=== PATIENT | male | born 1985 | race African-American/Black ===

== ENCOUNTER 2025-06-29 19:03 | Emergency (ER) | payer MEDICAID ==
[~2025-06-29] VITALS: Ht 182.9 cm; Wt 105.5 kg
[2025-06-29 19:11] VITALS: O2SAT 97
[2025-06-29] MEDS: SODIUM CHLORIDE 0.9% 1,000 ML IV ONE ×2 (20:06→20:07)
[2025-06-29 20:24] LABS: HEMATOCRIT. 41.8 % (42.0-52.0); HEMOGLOBIN. 14.1 g/dL (14.0-18.0); MEAN PLATELET VOLUME 10.2 fl (7.4-10.4); PLATELET 187 x1000/uL (130-400); RED BLOOD CELL COUNT 5.03 mill/uL (4.7-6.1); RED CELL DISTRIBUTION WIDTH 13.2 % (11.6-14.6)
[2025-06-29 20:53] LABS: LYMPHOCYTES % MANUAL 66.0 % (20.0-50.0); MONOCYTES % MANUAL 2.0 % (2.0-8.0); NEUTROPHILS % MANUAL 32.0 % (45.0-75.0); PLATELET ESTIMATE NORMAL
[2025-06-29 22:13] LABS: CLARITY URINE CLEAR (CLEAR); COLOR URINE YELLOW (YELLOW); GLUCOSE URINE 3+ (NEGATIVE); KETONES URINE NEGATIVE (NEGATIVE); LEUKOCYTE ESTERASE URINE NEGATIVE (NEGATIVE); NITRITE URINE NEGATIVE (NEGATIVE); OCCULT BLOOD URINE NEGATIVE (NEGATIVE); PH URINE 5.5 (4.5-8.0); PROTEIN URINE 2+ (NEGATIVE); SPECIFIC GRAVITY URINE 1.029 (1.005-1.030); UROBILINOGEN URINE 1.0 E.U./dL (0.2-1.0)
[2025-06-29 22:17] LABS: CREATININE 1.1 mg/dL (0.6-1.3); UREA NITROGEN BLOOD 9 mg/dL (9-23)
[2025-06-29 22:23] LABS: BACTERIA URINE TRACE; RBC URINE NONE SEEN /hpf (0-2); SQUAMOUS EPITHELIAL CELL URINE RARE /lpf (RARE/1+); WBC URINE 0-2 /hpf (0-2)
[2025-06-29 22:27] LABS: ETHANOL BLOOD < 10 mg/dL (<10)
[2025-06-29 22:31] LABS: *AMPHETAMINES SCREEN URINE NEGATIVE (NEGATIVE); *BENZODIAZEPINES SCREEN URINE NEGATIVE (NEGATIVE)
[2025-06-29 22:32] LABS: *BARBITURATES SCREEN URINE NEGATIVE (NEGATIVE); *COCAINE SCREEN URINE NEGATIVE (NEGATIVE); CANNABINOID URINE SCREEN NEGATIVE (NEGATIVE); ECSTASY MDMA SCREEN URINE NEGATIVE (NEGATIVE); METHADONE URINE SCREEN NEGATIVE (NEGATIVE); OPIATES URINE SCREEN NEGATIVE (NEGATIVE); PHENCYCLIDINE URINE SCREEN NEGATIVE (NEGATIVE)
[2025-06-29 22:42] LABS: BG DEOXYHEMOGLOBIN 27.3 % (0.0-5.0)
[2025-06-29] MEDS ORDERED: METF-414 MT (22:57)
[2025-06-29] MEDS ORDERED: INSU100I28 SQ (22:57)
[2025-06-29] MEDS: INSULIN REGULAR (HUMULIN R) 1000UNITS/10ML VIAL IV NR (23:14)
[2025-06-29 23:17] VITALS: BP 137/91; PULSE 86; RESP 13; TEMP 36.6; O2SAT 97
[2025-06-29] MEDS: INSULIN GLARGINE 100 UNITS/ML SUBCUT ONE (23:41)
[2025-06-29] MEDS: METFORMIN HCL 500MG TABLET PO ONE (23:41)
== END 2025-06-29 23:22 | disposition home or self-care (01) ==
LOC: ER 19:03
DX: E11.65 Type 2 diabetes mellitus with hyperglycemia (principal); F17.200 Nicotine dependence, unspecified, uncomplicated; Z79.899 Other long term (current) drug therapy
CPT/HCPCS: 80305; 80048; 81003; 82010; 80320; 82962; 83735; 85025; 36415; 82375; 82803; 96361; 96374; 99283; J1815; J7030; G0480